=== PATIENT | female | born 2000 ===

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

== ENCOUNTER 2022-04-26 06:00 | Outpatient (RCR) | payer BC, SELFPAY | END 2022-04-26 23:55 | disposition home or self-care (01) | LOC: MPT 06:00 | PROVIDERS: PCP Obstetrics & Gynecology; Referring Provider Obstetrics & Gynecology; Visit Provider Obstetrics & Gynecology | DX: M62.89 Other specified disorders of muscle (principal) | CPT/HCPCS: 97140; 97161; 97530 ==

== ENCOUNTER 2022-04-27 06:00 | Outpatient (RCR) | payer BC, SELFPAY | END 2022-05-27 23:55 | disposition home or self-care (01) | LOC: MPT 06:00 | PROVIDERS: PCP Obstetrics & Gynecology; Referring Provider Obstetrics & Gynecology; Visit Provider Obstetrics & Gynecology | DX: M62.89 Other specified disorders of muscle (principal) | CPT/HCPCS: 97140; 97530 ==

== ENCOUNTER 2022-06-28 06:00 | Outpatient (RCR) | payer BC, SELFPAY | END 2022-07-27 23:59 | disposition home or self-care (01) | LOC: MPT 06:00 | PROVIDERS: PCP Obstetrics & Gynecology; Referring Provider Obstetrics & Gynecology; Visit Provider Obstetrics & Gynecology | DX: M62.89 Other specified disorders of muscle (principal) | CPT/HCPCS: 97140; 97530 ==